=== PATIENT | male | born 1990 | race Caucasian/White ===

== ENCOUNTER → 2018-08-12 | Outpatient (REF) | payer BC | LOC: M LAB REF 19:12 | PROVIDERS: ATTEND Physician Assistant Medical | DX: J02.9 Acute pharyngitis, unspecified (principal) ==

== ENCOUNTER → 2018-12-30 | Outpatient (CLI) | payer BC ==
--- NOTE | 2018-12-31 05:21 | REP ---
Clinical: Lumbago and sciatica . Technique: AP, lateral, flexion/extension, bilateral oblique, and coned-down views. Findings: Alignment and lordosis is maintained. The vertebral bodies including transverse process and spinous processes are intact and normal. There is no evidence for acute fracture / compression injury or subluxation. No evidence for spondylolysis or spondylolisthesis. Minimal endplate sclerosis and disc space narrowing at L5-S1. Impression: Minimal disc space narrowing at L5-L1. Otherwise normal examination. Electronically Signed by Lino Birmingham MD 12/31/2018 05:12 A
== END ==
LOC: M ADAMS 16:03
PROVIDERS: ATTEND Physician Assistant
DX: M54.42 Lumbago with sciatica, left side (principal)

== ENCOUNTER → 2020-02-11 | Outpatient (CLI) | payer BC ==
[2020-02-11 11:39] LABS: BASO % 0.8 % (0.0-1.0); EOS # 0.1 10^3/uL (0.0-0.5); EOS % 1.3 % (0.0-3.0); HEMATOCRIT 44.9 % (42.0-52.0); HEMOGLOBIN 15.3 g/dl (13.5-17.5); LYMPH # 2.2 10^3/uL (1.5-5.0); LYMPH % 40.9 % (24.0-44.0); MEAN CORPUSCULAR HEMOGLOBIN 30.9 pg (27.0-33.0); MEAN CORPUSCULAR HGB CONC 34.1 g/dl (32.0-36.5); MEAN CORPUSCULAR VOLUME 90.7 fl (80.0-96.0); MONO # 0.4 10^3/uL (0.0-0.8); MONO % 6.8 % (0.0-5.0); NEUTROPHILS # 2.6 10^3/uL (1.5-8.5); NEUTROPHILS % 49.8 % (36.0-66.0); PLATELET COUNT, AUTOMATED 282 10^3/uL (150-450); RED BLOOD COUNT 4.95 10^6/uL (4.30-6.10); WHITE BLOOD COUNT 5.3 10^3/uL (4.0-10.0)
[2020-02-11 12:10] LABS: HEMOGLOBIN A1c 5.3 %
[2020-02-11 12:15] LABS: ALBUMIN 4.4 GM/DL (3.2-5.2); ALT/SGPT 53 U/L (12-78); BILIRUBIN,TOTAL 0.7 MG/DL (0.2-1.0); BLOOD UREA NITROGEN 18 MG/DL (7-18); CALCIUM LEVEL 9.3 MG/DL (8.5-10.1); CARBON DIOXIDE LEVEL 26 MEQ/L (21-32); CHLORIDE LEVEL 106 MEQ/L (98-107); CHOLESTEROL LEVEL 299 MG/DL (<200); CHOLESTEROL RISK RATIO 6.229 (<5); CREATININE FOR GFR 0.99 MG/DL (0.70-1.30); FREE T4 1.09 NG/DL (0.76-1.46); GLOMERULAR FILTRATION RATE > 60.0 (>60); GLUCOSE, FASTING 87 MG/DL (70-100); HDL CHOLESTEROL 48 MG/DL (>40); LDL CHOLESTEROL 214 MG/DL (<100); NON-HDL-C 251 MG/DL; POTASSIUM SERUM 4.4 MEQ/L (3.5-5.1); SODIUM LEVEL 139 MEQ/L (136-145); TOTAL PROTEIN 7.5 GM/DL (6.4-8.2); TRIGLYCERIDES LEVEL 187 MG/DL (<150)
== END ==
LOC: M LAB 09:55
PROVIDERS: ATTEND Physician Assistant
DX: Z13.29 Encounter for screening for other suspected endocrine disorder (principal); Z13.220 Encounter for screening for lipoid disorders

== ENCOUNTER → 2020-03-01 | Outpatient (CLI) | payer BC ==
--- NOTE | 2020-03-08 15:42 | SLEEPHOME ---
DATE: 03/01/2020 ORDERED BY: Curtis Espinoza Diagnostic home sleep testing was performed due to concern for the obstructive sleep apnea syndrome in this patient with a history of fatigue. For testing, a nocturnal T3 respiratory monitoring device was used. Continuous record was made of pulse, oxygen saturation, air flow, chest and abdominal strain, and body position. There was 11 hours and 58 minutes of data reviewed. There was 7 hours and 46 minutes marked as time in bed. During the interval marked time in bed, there were 56 respiratory events identified of 10 seconds in duration or greater for a respiratory event index of 7.2. The events were primarily obstructive. Baseline pulse rate 50 beats per minute. Pulse rate ranged 40-80. Baseline saturation was 93%. Saturations fell to 87%, and testing was performed in both the supine and nonsupine positions. IMPRESSION: Abnormal home sleep testing with repetitive respiratory events and oxygen desaturations to 87% with a respiratory event index of 7.2 is consistent with the obstructive sleep apnea syndrome. RECOMMENDATION: The patient should be encouraged to undergo formal sleep evaluation.
== END ==
LOC: M SLEEP HO 10:52
PROVIDERS: ATTEND Physician Assistant
DX: G47.10 Hypersomnia, unspecified (principal)

== ENCOUNTER → 2021-01-30 | Outpatient (REF) | payer BC | LOC: M LAB REF 17:02 | PROVIDERS: ATTEND Physician Assistant | DX: J06.9 Acute upper respiratory infection, unspecified (principal) ==

== ENCOUNTER 2021-02-10 14:06 | Emergency (ER) | payer BC ==
[~2021-02-10] VITALS: Ht 177.8 cm; Wt 79.5 kg
--- OUTSIDE RECORDS SUMMARY | 2021-02-10 14:13 | CCD | Continuity of Care Document ---
Author Author Anish UREÑA Organization [place] [address] Phone [phone] Care Team Providers Care Wind Development Director Name Role Phone Radha Amato D.O. 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 05/03/2020 Cyclobenzaprine HCL 10mg Tablets take one tablet twice a day by mouth. 60tabs M54.42 Mirella LucasO. 05/03/2020 Immunizations Description No Information Available Vital Signs Date Vital Result Comment 01/30/2021 3:28pm Height 69.7 inches 5'9.70" Heart Rate 89 /min Respiratory Rate 20 /min Body Temperature 98.2 F O2 % BldC Oximetry 97 % [place] Body Weight 160 lb 05/03/2020 2:27pm BP Systolic 140 mmHg BP Diastolic 84 mmHg Height 69.7 inches 5'9.70" Weight 209.00 lb BMI (Body Mass Index) 30.2 kg/m2 Heart Rate 87 /min Respiratory Rate 16 /min Body Temperature 97.9 F O2 % BldC Oximetry 96 % [place] Body Weight 160 lb Results Description No Information Available Procedures Date Code Description Status 01/30/2021 06451 Office/Outpatient Established Lo w MDM 20-29 Min Completed Medical Devices Description No Information Available Encounters Type Date Location Provider Dx Diagnosis Office Visit 01/30/2021 3:30p Family Medicine [facility] ELADIA Shin J06.9 Acute upper respiratory infe ction, unspecified Assessments Date Code Description Provider 01/30/2021 J06.9 Acute upper respiratory infectio n, unspecified ELADIA Shin Plan of Treatment No Information Available Functional Status Description No Information Available Mental Status Description No Information Available Referrals Description No Information Available
--- OUTSIDE RECORDS SUMMARY | 2021-02-10 14:13 | CCD ---
Author Author [facility] Organization [facility] Address Unknown Phone Unavailable Care Team Providers Care Adhesive Bandage Making Operator Name Role Phone Jose, A Curtis PA Unavailable Unavailable O'trupti, A Curtis PA Unavailable Unavailable O'trupti, A Curtis PA Unavailable Unavailable O'trupti, A Curtis PA Unavailable Unavailable O'trupti, A Curtis PA Unavailable Unavailable O'trupti, A Ucrtis PA Unavailable Unavailable O'trupti, A Curtis PA Unavailable Unavailable O'trupti, A Curtis PA Unavailable Unavailable O'trupti, A Curtis PA Unavailable Unavailable O'trupti, A Curtis PA Unavailable Unavailable O'trupti, A Curtis PA Unavailable Unavailable O'trupti, A Curtis PA Unavailable Unavailable O'trupti, A Curtis PA Unavailable Unavailable O'trupti, A Curtis PA Unavailable Unavailable O'trupti, A Curtis PA Unavailable Unavailable O'trupti, A Curtis PA Unavailable Unavailable O'trupti, A Curtis PA Unavailable Unavailable O'trupti, A Curtis PA Unavailable Unavailable O'trupti, A Curtis PA Unavailable Unavailable O'trupti, A Curtis PA Unavailable Unavailable O'trupti, A Curtis PA Unavailable Unavailable O'trupti, A Curtis PA Unavailable Unavailable O'trupti, A Curtis PA Unavailable Unavailable O'trupti, A Curtis PA Unavailable Unavailable O'trupti, A Curtis PA Unavailable Unavailable O'trupti, A Curtis PA Unavailable Unavailable O'trupti, A Curtis PA Unavailable Unavailable O'trupti, A Curtis PA Unavailable Unavailable O'trupti, A Curtis PA Unavailable Unavailable O'trupti, A Curtis PA Unavailable Unavailable O'trupti, A Crutis PA Unavailable Unavailable O'trupti, A Curtis PA Unavailable Unavailable O'trupti, A Curtis PA Unavailable Unavailable Re-disclosure Warning The records that you are about to access may contain information from federally-assisted alcohol or drug abuse programs. If such information is present, then the following federally mandated warning applies: This information has been disclosed to you from records protected by federal confidentiality rules (42 CFR part 2). The federal rules prohibit you from making any further disclosure of this information unless further disclosure is expressly permitted by the written consent of the person to whom it pertains or as otherwise permitted by 42 CFR part 2. A general authorization for the release of medical or other information is NOT sufficient for this purpose. The Federal rules restrict any use of the information to criminally investigate or prosecute any alcohol or drug abuse patient.The records that you are about to access may contain highly sensitive health information, the redisclosure of which is protected by Article 27-F of the [facility] Public Health law. If you continue you may have access to information: Regarding HIV / AIDS; Provided by facilities licensed or operated by the [facility] Office of Mental Health; or Provided by the [facility] Office for People With Developmental Disabilities. If such information is present, then the following [facility] mandated warning applies: This information has been disclosed to you from confidential records which are protected by state law. State law prohibits you from making any further disclosure of this information without the specific written consent of the person to whom it pertains, or as otherwise permitted by law. Any unauthorized further disclosure in violation of state law may result in a fine or care home sentence or both. A general authorization for the release of medical or other information is NOT sufficient authorization for further disc losure. Family History Family Member Name Family Member Gender Family Member Status Date o f Status Description Data Source(s) Unknown Unknown Problem [facility] ([facility]) Encounters Encounter Providers Location Date Indications Data Source(s ) Outpatient Attender: Curtis MONTILLA [facility] 01/30/2021 02:30:00 PM EST [facility] ([facility]) Outpatient Attender: Curtis MONTILLA [facility] 05/03/2020 01:30:00 PM EST [facility] ([facility]) Outpatient Attender: Curtis MONTILLA [facility] 02/12/2020 08:00:00 AM EST [facility] ([facility]) Medications Medication Brand Name Start Date Product Form Dose Route Admi nistrative Instructions Pharmacy Instructions Status Indications Reaction Description Data Source(s) Prednisone 20 MG Oral Tablet Prednisone 05/03/2020 12:00:00 AM EST ORAL active [facility] ([facility]) 500 mg 05/03/2020 12:00:00 AM EST tablet 180 TAKE ONE TABLET BY MOUTH TWICE A DAY WITH FOOD NEEDED TAKE ONE TABLET BY MOUTH TWICE A DAY WIT H FOOD NEEDED SOLD: 05/04/2020 [facility] Cyclobenzaprine hydrochloride 10 MG Oral Tablet Cyclobenzapr ine HCL 05/03/2020 12:00:00 AM EST ORAL active [facility] ([facility]) Naproxen 500 MG Oral Tablet Naproxen 05/03/2020 12:00:00 AM EST active [facility] ([facility]) Cyclobenzaprine hydrochloride 10 MG Oral Tablet CYCLOBENZAPR INE HCL 05/03/2020 12:00:00 AM EST tablet 60 TAKE ONE TABLET BY MOUTH TWICE A DAY TAKE ONE TABLET BY MOUTH TWICE A DAY SOLD: 05/04/2020 [facility] 20 mg 05/03/2020 12:00:00 AM EST tablet 10 TAKE TWO TABLETS BY MOUTH EVERY DAY FOR 5 DAYS TAKE TWO TABLETS BY MOUTH EVERY DAY FOR 5 DAYS SOLD: 021 [facility]. 02/12/2020 12:00:00 AM EST completed [facility] ([facility]) Rosuvastatin calcium 20 MG Oral Tablet Rosuvastatin Calcium 02/12/2020 12:00:00 AM EST ORAL completed [facility] ([facility]) No Active Medications 02/12/2020 12:00:00 AM EST completed [facility] ([facility]) Insurance Providers Payer name Policy type / Coverage type Policy ID Covered alliance party ID Covered alliance party's relationship to becerril Policy Becerril Plan Information [employer] [place] 302/307 [id number] [id number] [employer] [place] 306/806 [id number] [place] [id number] [employer] [place] 306/806 [id number] [place] [id number] [facility] BCBS B [id number] P [id number] [employer] [id number] Family Dependent [id number] [facility] P [id number] S [id number] [facility] P [id number] S [id number] Problems, Conditions, and Diagnoses No Information Surgeries/Procedures Procedure Description Date Indications Data Source(s) OFFICE OUTPATIENT VISIT 15 MINUTES 01/30/2021 12:00:00 AM EST [facility] ([facility]) Results ID Date Data Source [id number] 01/30/2021 04:00:00 PM EST [facility] Name Value Range Interpretation Code Description Data Tanesha rce(s) Supporting Document(s) Respiratory pathogens identified [Type] in Nasopharynx by Probe and target amplification method SARS-CoV-2 (COVID 19) [facility] This lab was ordered by [facility] a nd reported by [facility]. ID Date Data Source [id number] 01/30/2021 04:00:00 PM EST [facility] ([facility]) Name Value Range Interpretation Code Description Data Tanesha rce(s) Supporting Document(s) Respiratory Panel Laboratory test result [facility] ([facility]) This respiratory PCR panel detects Influ mehrdad A H1, H3 and 2009 H1 viruses, Influenza B virus, Resp iratory Syncytial Virus, Human metapneumovirus, Parainfluenza virus 1, 2, 3 and 4, Adenovirus, Rhinovirus/Enterovirus, Coronavirus HKU1, NL63, OC43, 229E and SARS-CoV-2 (COVID 19), Bordetella pertussis, Bordetella parapertussis, Mycoplasma pneumoniae and Chlamydia pneumoniae. POSITIVE by MULTIPLEXED NUCLEIC ACID PCR SARS-CoV-2 (COVID 19) POSITIVE - SARS-CoV-2 (COVID19) ORGANISM 1: SARS-CoV-2 (COVID 19) ID Date Data Source [id number] 02/11/2020 10:05:00 AM EST [facility] ([facility]) Name Value Range Interpretation Code Description Data Tanesha rce(s) Supporting Document(s) Triglycerides Level 187 mg/dL Above high normal [facility] HDL Cholesterol 48 mg/dL Normal (applies to non-numeric results) [facility] ([facility]) Cholesterol Level 299 mg/dL Above high normal [facility] ([facility]) LDL Cholesterol 214 mg/dL Above high normal [facility] ([facility]) Cholesterol Risk Ratio 6.229 Above high normal [facility] ([facility]) Non-HDL-C 251 mg/dL Normal (applies to non-numeric resul ts) [facility] ([facility]) ID Date Data Source [id number] 02/11/2020 10:05:00 AM EST [facility] ([facility]) Name Value Range Interpretation Code Description Data Tanesha rce(s) Supporting Document(s) Thyroid Stimulating Hormone 1.430 uIU/ML 0.358-3.740 Norm al (applies to non- numeric results) [facility] ([facility]) Free T4 1.09 ng/dL 0.76-1.46 Normal (applies to non-numeric resul ts) [facility] ([facility]) ID Date Data Source [id number] 02/11/2020 10:05:00 AM EST [facility] ([facility]) Name Value Range Interpretation Code Description Data Tanesha rce(s) Supporting Document(s) Hemoglobin A1c 5.3 % Normal (applies to non-numeric r esults) [facility] ([facility]) <content>REFERENCE RANGES:</content><br/ ><content></content>
<content><=5.6% NORMAL</content>
<content>5.7-6.4% SUGGESTS IMPAIRED GLUCOSE METABOLISM/PREDIABETIC</content>
<content>>= 6.5% ABNORMAL</content>
<content></content> Estimated Average Glucose 105 mg/dL 60-110 Normal (applies to non-numeric results) [facility] ([facility]) ID Date Data Source [id number] 02/11/2020 10:05:00 AM EST [facility] ([facility]) Name Value Range Interpretation Code Description Data Tanesha rce(s) Supporting Document(s) Calcitriol [Mass/volume] in Serum or Plasma 48.4 pg/mL 19.9 -79.3 Normal (applies to non-numeric results) [facility] ([facility]) Performed at: [address] [id number] Restaurant Worker: Annalise Gaitan MD, Phone: [phone] ID Date Data Source [id number] 02/11/2020 10:05:00 AM EST [facility] ([facility]) Name Value Range Interpretation Code Description Data Tanesha rce(s) Supporting Document(s) White Blood Count 5.3 10 4.0-10.0 Normal (applies to non-numeri c results) [facility] ([facility]) Hemoglobin 15.3 g/dL 13.5-17.5 Normal (applies to non-numeric resul ts) [facility] ([facility]) Hematocrit 44.9 % 42.0-52.0 Normal (applies to non-numeric resul ts) [facility] ([facility]) Red Blood Count 4.95 10 4.30-6.10 Normal (applies to non-numeric results) [facility] ([facility]) Mean Corpuscular Hemoglobin 30.9 pg 27.0-33.0 Norm al (applies to non-numeric results) [facility] ([facility]) Mean Corpuscular Volume 90.7 fl 80.0-96.0 Normal ( applies to non-numeric results) [facility] ([facility]) Red Cell Distribution Width 12.5 % 11.5-14.5 Norm al (applies to non-numeric results) [facility] ([facility]) Platelet Count, Automated 282 10 150-450 Normal (applies to non-numeric results) [facility] ([facility]) Mean Corpuscular HGB Conc 34.1 g/dL 32.0-36.5 Normal (applies to non-numeric results) [facility] ([facility]) [place] % 6.8 % 0.0-5.0 Above high normal [facility] ([facility]) Neutrophils % 49.8 % 36.0-66.0 Normal (applies to non-numeric re sults) [facility] ([facility]) Lymph % 40.9 % 24.0-44.0 Normal (applies to non-numeric resul ts) [facility] ([facility]) Immature Granulocyte % 0.4 % 0-3.0 Normal (applies to non-n umeric results) [facility] ([facility]) Baso % 0.8 % 0.0-1.0 Normal (applies to non-numeric resul ts) [facility] ([facility]) Eos % 1.3 % 0.0-3.0 Normal (applies to non-numeric resul ts) [facility] ([facility]) Neutrophils # 2.6 10 1.5-8.5 Normal (applies to non-numeric re sults) [facility] ([facility]) Nucleated Red Blood Cell % 0.0 % 0-0 Normal (applies to n on-numeric results) [facility] ([facility]) [place] # 0.4 10 0.0-0.8 Normal (applies to non-numeric resul ts) [facility] ([facility]) Lymph # 2.2 10 1.5-5.0 Normal (applies to non-numeric resul ts) [facility] ([facility]) Eos # 0.1 10 0.0-0.5 Normal (applies to non-numeric resul ts) [facility] ([facility]) Baso # 0.0 10 0.0-0.2 Normal (applies to non-numeric resul ts) [facility] ([facility]) ID Date Data Source [id number] 02/11/2020 10:05:00 AM EST [facility] ([facility]) Name Value Range Interpretation Code Description Data Tanesha rce(s) Supporting Document(s) Blood Urea Nitrogen 18 mg/dL 7-18 Normal (applies to non-nume dhaval results) [facility] ([facility]) Creatinine For GFR 0.99 mg/dL 0.70-1.30 Normal (applies to non -numeric results) [facility] ([facility]) Glucose, Fasting 87 mg/dL 70-100 Normal (applies to non-numeric results) [facility] ([facility]) Sodium Level 139 meq/L 136-145 Normal (applies to non-numeric res ults) [facility] ([facility]) Glomerular Filtration Rate Laboratory test result Normal (applies to non- numeric results) [facility] ([facility]) <content>Units are mL/min/1.73 m2</content>
<content></content>
<content>Chronic Kidney Disease Staging per NKF:</content>
<content></content>
<content>Stage I & II GFR >=60 Normal to Mildly Decreased</content>
<content>Stage III GFR 30- 59 Moderately Decreased</content>
<content>Stage IV GFR 15-29 Severely Decreased</content>
<content>Stage V GFR <15 Very Little GFR Left</content>
<content>ESRD GFR <15 on RESIDENTIAL APPLIANCE REPAIR TECHNICIAN</content>
<content></content> Potassium Serum 4.4 meq/L 3.5-5.1 Normal (applies to non-numeric results) [facility] ([facility]) Chloride Level 106 meq/L 98-107 Normal (applies to non-numeric r esults) [facility] ([facility]) Carbon Dioxide Level 26 meq/L 21-32 Normal (applies to non-num amrit results) [facility] ([facility]) Ast/Sgot 23 U/L 7-37 Normal (applies to non-numeric resul ts) [facility] ([facility]) Anion Gap 7 meq/L 8-16 Below low normal [facility] ( [facility]) Calcium Level 9.3 mg/dL 8.5-10.1 Normal (applies to non-numeric re sults) [facility] ([facility]) Alt/SGPT 53 U/L 12-78 Normal (applies to non-numeric resul ts) [facility] ([facility]) Alkaline Phosphatase 72 U/L 45-117 Normal (applies to non-num amrit results) [facility] ([facility]) Albumin 4.4 GM/DL 3.2-5.2 Normal (applies to non-numeric resul ts) [facility] ([facility]) Total Protein 7.5 GM/DL 6.4-8.2 Normal (applies to non-numeric re sults) [facility] ([facility]) Bilirubin,Total 0.7 mg/dL 0.2-1.0 Normal (applies to non-numeric results) [facility] ([facility]) Albumin/Globulin Ratio 1.4 Normal (applies to non-n umeric results) [facility] ([facility]) Procedure Social History No Information Vital Signs ID Date Data Source UNK Name Value Range Interpretation Code Description Data Source(s) Body height 69.7 [in_i] 69.7 [in_i] [facility] ([facility] 5'9.70" Heart rate 89 /min 89 /min [facility] ([facility]) Respiratory rate 20 /min 20 /min [facility] ( [facility]) Body temperature 98.2 [degF] 98.2 [degF] [facility] ([facility]) Oxygen saturation in Arterial blood by Pulse oximetry 97 % 97 % [facility] ([facility]) [place] body weight 160 [lb_av] 160 [lb_av] [facility] T ([facility]) Systolic blood pressure 140 mm[Hg] 140 mm[Hg] [facility] ([facility]) Diastolic blood pressure 84 mm[Hg] 84 mm[Hg] [facility] ([facility]) Body height 69.7 [in_i] 69.7 [in_i] [facility] ([facility]) 5'9.70" Body weight 209.00 [lb_av] 209.00 [lb_av] [facility] T ([facility]) Body mass index (BMI) [Ratio] 30.2 kg/m2 30.2 k g/m2 [facility] ([facility]) Heart rate 87 /min 87 /min [facility]) Respiratory rate 16 /min 16 /min [facility] ( [facility]) Body temperature 97.9 [degF] 97.9 [degF] [facility] ([facility]) Oxygen saturation in Arterial blood by Pulse oximetry 96 % 96 % [facility] ([facility]) [place] body weight 160 [lb_av] 160 [lb_av] [facility] T ([facility]) Systolic blood pressure 128 mm[Hg] 128 mm[Hg] M DHAVAL ([facility]) Diastolic blood pressure 74 mm[Hg] 74 mm[Hg] [facility] ([facility]) Body height 69.7 [in_i] 69.7 [in_i] [facility] ([facility]) 5'9.70" Body weight 210.12 [lb_av] 210.12 [lb_av] [facility]A T ([facility]) Oxygen saturation in Arterial blood by Pulse oximetry 97 % 97 % [facility] ([facility]) [place] body weight 160 [lb_av] 160 [lb_av] [facility] T ([facility]) Body mass index (BMI) [Ratio] 30.4 kg/m2 30.4 k g/m2 [facility] ([facility]) Heart rate 69 /min 69 /min [facility] ([facility]) Respiratory rate 18 /min 18 /min [facility] ( [facility]) Body temperature 98.4 [degF] 98.4 [degF] [facility] ([facility])
--- OUTSIDE RECORDS SUMMARY | 2021-02-10 14:13 | CCD | Continuity of Care Document ---
Author Author Anish UREÑA Organization [place] [address] Phone [phone] Care Team Providers Care Clerical Support Name Role Phone Radha Amato D.O. AUTM [...] F O2 % BldC Oximetry 97 % [place] Body Weight 160 lb 05/03/2020 2:27pm BP Systolic 140 mmHg BP Diastolic 84 mmHg Height 69.7 inches 5'9.70" Weight 209.00 lb BMI (Body Mass Index) 30.2 kg/m2 Heart Rate 87 /min Respiratory Rate 16 /min Body Temperature 97.9 F O2 % BldC Oximetry 96 % [place] Body Weight 160 lb Results Description No Information Available Procedures Date Code Description Status 01/30/2021 12058 Office/Outpatient Established Lo w MDM 20-29 Min Completed Medical Devices Description No Information Available Encounters Type Date Location Provider Dx Diagnosis Office Visit 01/30/2021 3:30p Family Medicine [facility] ELADIA Shin J06.9 Acute upper respiratory infe ction, unspecified Assessments Date Code Description Provider 01/30/2021 J06.9 Acute upper respiratory infectio n, unspecified ELADIA Shin Plan of Treatment No Information Available Functional Status Description No Information Available Mental Status Description No Information Available Referrals Description No Information Available
--- OUTSIDE RECORDS SUMMARY | 2021-02-10 14:13 | CCD | Continuity of Care Document ---
Author Author Anish UREÑA Organization [place] [address] Phone [phone] Care Team Providers Care Clinical Psychologist Name Role Phone Radha Amato D.O. AUTM [...] F O2 % BldC Oximetry 97 % [place] Body Weight 160 lb 05/03/2020 2:27pm BP Systolic 140 mmHg BP Diastolic 84 mmHg Height 69.7 inches 5'9.70" Weight 209.00 lb BMI (Body Mass Index) 30.2 kg/m2 Heart Rate 87 /min Respiratory Rate 16 /min Body Temperature 97.9 F O2 % BldC Oximetry 96 % [place] Body Weight 160 lb Results Test Acquired Date Facility Test Result H/L Range Note Respiratory Panel 01/30/2021 [facility] [address] [place] [address] [phone] Respiratory Panel This respiratory <SEE NOTE> 1 1 This respiratory PCR panel d etects Influenza A H1, H3 and 2009 H1 viruses, Influenza B virus, Resp iratory Syncytial Virus, Human metapneumovirus, Parainfluenza virus 1, 2, 3 and 4, Adenovirus, Rhinovirus/Enterovirus, Coronavirus HKU1, NL63, OC43, 229E and SARS-CoV-2 (COVID 19), Bordetella pertussis, Bordetella parapertussis, Mycoplasma pneumoniae and Chlamydia pneumoniae. POSITIVE by MULTIPLEXED NUCLEIC ACID PCR SARS-CoV-2 (COVID 19) POSITIVE - SARS-CoV-2 (COVID19) ORGANISM 1: SARS-CoV-2 (COVID 19) Procedures Date Code Description Status 01/30/2021 95433 Office/Outpatient Established w MDM 20-29 Min Completed Medical Devices Description No Information Available Encounters Type Date Location Provider Dx Diagnosis Office Visit 01/30/2021 3:30p Family Medicine [facility] ELADIA Shin J06.9 Acute upper respiratory infe ction, unspecified Assessments Date Code Description Provider 01/30/2021 J06.9 Acute upper respiratory infectio n, unspecified ELADIA Shin Plan of Treatment No Information Available Functional Status Description No Information Available Mental Status Description No Information Available Referrals Description No Information Available
--- OUTSIDE RECORDS SUMMARY | 2021-02-10 14:13 | CCD | Continuity of Care Document ---
Author Author Anish UREÑA Organization [place] [address] Phone [phone] Care Team Providers Care Numerical Control Operator Name Role Phone Radha Amato D.O. AUTM [...] F O2 % BldC Oximetry 97 % [place] Body Weight 160 lb 05/03/2020 2:27pm BP Systolic 140 mmHg BP Diastolic 84 mmHg Height 69.7 inches 5'9.70" Weight 209.00 lb BMI (Body Mass Index) 30.2 kg/m2 Heart Rate 87 /min Respiratory Rate 16 /min Body Temperature 97.9 F O2 % BldC Oximetry 96 % [place] Body Weight 160 lb Results Description No Information Available Procedures Date Code Description Status 01/30/2021 64117 Office/Outpatient Established Lo w MDM 20-29 Min Completed Medical Devices Description No Information Available Encounters Type Date Location Provider Dx Diagnosis Office Visit 01/30/2021 3:30p Family Medicine [facility] ELADIA Shin J06.9 Acute upper respiratory infe ction, unspecified Assessments Date Code Description Provider 01/30/2021 J06.9 Acute upper respiratory infectio n, unspecified ELADIA Shin Plan of Treatment No Information Available Functional Status Description No Information Available Mental Status Description No Information Available Referrals Description No Information Available
[2021-02-10] MEDS ORDERED: ISOVUE-370 76% 100ML VIAL As Ordered ONE (19:50)
[2021-02-10] MEDS ORDERED: NS 1,000 ML IV ONE (19:50)
--- OUTSIDE RECORDS SUMMARY | 2021-02-10 20:39 | CCD ---
Author Author [facility] Organization [facility] Address Unknown Phone Unavailable Care Team Providers Care Content Strategist Name Role Phone Jose, A Curtis PA [...] is protected by Article 27-F of the [facility] Public Health law. If you continue you may have access to information: Regarding HIV / AIDS; Provided by facilities licensed or operated by the [facility] Office of Mental Health; or Provided by the [facility] Office for People With Developmental Disabilities. If such information is present, then the following [facility] mandated warning applies: This information has been [...] law may result in a fine or snf sentence or both. A general authorization for the release of medical or other information is NOT sufficient authorization for further disc losure. Family History Family Member Name Family Member Gender Family Member Status Date o f Status Description Data Source(s) Unknown Unknown Problem [facility] ([facility]) Encounters Encounter Providers Location Date Indications Data Source(s ) Outpatient Attender: Curtis MONTILLA [facility] 02/10/2021 09:40:00 AM EST [facility] ([facility]) Outpatient Attender: Curtis MONTILLA [facility] 01/30/2021 02:30:00 PM EST [facility] ([facility]) Outpatient Attender: Curtis MONTILLA [facility] 05/03/2020 01:30:00 PM EST [facility] ([facility]) Outpatient Attender: Curtis MONTILLA [facility] 02/12/2020 08:00:00 AM EST [facility] ([facility]) Medications Medication Brand Name Start Date Product Form Dose Route Admi nistrative Instructions Pharmacy Instructions Status Indications Reaction Description Data Source(s) Prednisone 20 MG Oral Tablet Prednisone 05/03/2020 12:00:00 AM EST ORAL active [facility] ([facility]) 500 mg 05/03/2020 12:00:00 AM EST tablet 180 TAKE ONE TABLET BY MOUTH TWICE A DAY WITH FOOD NEEDED TAKE ONE TABLET BY MOUTH TWICE A DAY WIT H FOOD NEEDED SOLD: 05/04/2020 [facility] Cyclobenzaprine hydrochloride 10 MG Oral Tablet Cyclobenzapr ine HCL 05/03/2020 12:00:00 AM EST ORAL active M [facility] ([facility]) Naproxen 500 MG Oral Tablet Naproxen 05/03/2020 12:00:00 AM EST active [facility] ([facility]) Cyclobenzaprine hydrochloride 10 MG Oral Tablet CYCLOBENZAPR [...] EVERY DAY FOR 5 DAYS SOLD: [address] [facility] Home Sleep Study. 02/12/2020 12:00:00 AM EST completed [facility] ([facility]) Rosuvastatin calcium 20 MG Oral Tablet Rosuvastatin Calcium 02/12/2020 12:00:00 AM EST ORAL completed [facility] ([facility]) No Active Medications 02/12/2020 12:00:00 AM EST completed [facility] ([facility]) Insurance Providers Payer name Policy type / Coverage type Policy ID Covered alliance party ID Covered alliance party's relationship to becerril Policy Becerril Plan Information [employer] [place] PPO 302/307 [id number] [place] [id number] [employer] [place] 306/806 [id number] [place] [id number] BC[place] OF [place] 306/806 [id number] [place]2 [id number] [employer] BCBS B [id number] P VYS [id number] BCBS/[employer] Commercial [id number] Family Dependent [id number] [facility] P [id number] S [id number] [facility] P [id number] S [id number] Problems, Conditions, and Diagnoses No Information Surgeries/Procedures Procedure Description Date Indications Data Source(s) Electrocardiogram Complete 02/10/2021 12:00:00 AM EST [facility] ([facility]) OFFICE OUTPATIENT VISIT 25 MINUTES 02/10/2021 12:00:00 AM EST [facility] ([facility]) OFFICE OUTPATIENT VISIT 15 MINUTES 01/30/2021 12:00:00 AM EST [facility] ([facility]) Results ID Date Data Source [id number] 02/10/2021 12:07:00 PM EST [facility] ([facility]) Name Value Range Interpretation Code Description Data Tanesha rce(s) Supporting Document(s) EKG Laboratory test result [facility] ([facility]) ID Date Data Source [id number] 02/10/2021 11:53:00 AM EST [facility] ([facility]) Name Value Range Interpretation Code Description Data Tanesha rce(s) Supporting Document(s) C reactive protein [Mass/volume] in Serum or Plasma by High sensitivity method 0.68 mg/dL 0.00-0.30 Above high normal [facility] ([facility]) ID Date Data Source [id number] 02/10/2021 11:53:00 AM EST [facility] ([facility]) Name Value Range Interpretation Code Description Data Tanesha rce(s) Supporting Document(s) Glucose, Fasting 88 mg/dL 70-100 Normal (applies to non-numeric results) [facility] ([facility]) Blood Urea Nitrogen 10 mg/dL 7-18 Normal (applies to non-nume dhaval results) [facility] ([facility]) Creatinine For GFR 0.84 mg/dL 0.70-1.30 Normal (applies to non -numeric results) [facility] ([facility]) Glomerular Filtration Rate Laboratory test result Normal (applies to non- numeric results) [facility] ([facility]) <content>Units are mL/min/1.73 m2</content>
<content></content>
<content>Chronic Kidney Disease Staging per NKF:</content>
<content></content>
<content>Stage I & II GFR >=60 Normal to Mildly Decreased</content>
<content>Stage III GFR 30- 59 Moderately Decreased</content>
<content>Stage IV GFR 15-29 Severely Decreased</content>
<content>Stage V GFR <15 Very Little GFR Left</content>
<content>ESRD GFR <15 on DIRECTOR OF STUDENT SERVICES</content>
<content></content> Sodium Level 142 meq/L 136-145 Normal (applies to non-numeric res ults) [facility] ([facility]) Potassium Serum 4.2 meq/L 3.5-5.1 Normal (applies to non-numeric results) [facility] ([facility]) Chloride Level 109 meq/L 98-107 Above high normal [facility] ([facility]) Carbon Dioxide Level 29 meq/L 21-32 Normal (applies to non-num amrit results) [facility] ([facility]) Anion Gap 4 meq/L 8-[address] [facility] ( [facility]) Calcium Level 9.1 mg/dL 8.5-10.1 Normal (applies to non-numeric re sults) [facility] ([facility]) Alt/SGPT 63 U/L 12-78 Normal (applies to non-numeric resul ts) [facility] ([facility]) Ast/Sgot 21 U/L 7-37 Normal (applies to non-numeric resul ts) [facility] ([facility]) Bilirubin,Total 0.4 mg/dL 0.2-1.0 Normal (applies to non-numeric results) [facility] ([facility]) Alkaline Phosphatase 71 U/L 45-117 Normal (applies to non-num amrit results) [facility] ([facility]) Total Protein 7.0 GM/DL 6.4-8.2 Normal (applies to non-numeric re sults) [facility] ([facility]) Albumin 4.1 GM/DL 3.2-5.2 Normal (applies to non-numeric resul ts) [facility] ([facility]) Albumin/Globulin Ratio 1.4 Normal (applies to non-n umeric results) [facility] ([facility]) ID Date Data Source [id number] 02/10/2021 11:53:[address] [facility] ([facility]) Name Value Range Interpretation Code Description Data Tanesha rce(s) Supporting Document(s) Fibrin D-dimer FEU [Mass/volume] in Platelet poor plasma 584.54 ng/mL Above high normal [facility] ([facility]) Laboratory test finding (navigational concept) 8.0 ng/L 3 .0-78 Normal (applies to non-numeric results) [facility]) ID Date Data Source [id number] 02/10/2021 11:53:[address] [facility] ([facility]) Name Value Range Interpretation Code Description Data Tanesha rce(s) Supporting Document(s) Inr 0.97 Normal (applies to non-numeric resul ts) [facility] ([facility]) THERAPUTIC HUMAN INR VALUES INDICATIONS NORMAL RANGES PROPHYLAXIS/TREATMENT OF: VENOUS THROMBOSIS 2.0-3.0 PULMONARY EMBOLISM 2.0-3.0 PREVENTION OF SYSTEMIC EMBOLISM FROM: TISSUE HEART VALVES 2.0-3.0 ACUTE MYOCARDIAL INFARCTION 2.0-3.0 VALVULAR HEART DISEASE 2.0-3.0 ATRIAL FIBRILLATION 2.0-3.0 MECHANICAL VALVES(HIGH RISK) 2.5-3.5 RECURRENT MYOCARDIAL INFARCTION 2.5-3.5 Prothrombin Time 13.3 s 12.7-14.5 Normal (applies to non-numeric results) [facility] ([facility]) Partial Thromboplastin Time 30.9 s 25.9-37.0 Norm al (applies to non-numeric results) [facility]) ID Date Data Source [id number] 02/10/2021 11:53:00 AM EST [facility] ([facility]) Name Value Range Interpretation Code Description Data Tanesha rce(s) Supporting Document(s) White Blood Count 4.4 10 4.0-10.0 Normal (applies to non-numeri c results) [facility] ([facility]) Hemoglobin 15.3 g/dL 13.5-17.5 Normal (applies to non-numeric resul ts) [facility] ([facility]) Red Blood Count 4.97 10 4.30-6.10 Normal (applies to non-numeric results) [facility] ([facility]) Hematocrit 44.9 % 42.0-52.0 Normal (applies to non-numeric resul ts) [facility] ([facility]) Mean Corpuscular Hemoglobin 30.8 pg 27.0-33.0 Norm al (applies to non-numeric results) [facility] ([facility]) Mean Corpuscular Volume 90.3 fl 80.0-96.0 Normal ( applies to non-numeric results) [facility] ([facility]) Red Cell Distribution Width 12.6 % 11.5-14.5 Norm al (applies to non-numeric results) [facility] ([facility]) Mean Corpuscular HGB Conc 34.1 g/dL 32.0-36.5 Normal (applies to non-numeric results) [facility] ([facility]) Platelet Count, Automated 263 10 150-450 Normal (applies to non-numeric results) [facility] ([facility]) Neutrophils % 44.2 % 36.0-66.0 Normal (applies to non-numeric re sults) [facility] ([facility]) Lymph % 43.9 % 24.0-44.0 Normal (applies to non-numeric resul ts) [facility] ([facility]) Eos % 1.8 % 0.0-3.0 Normal (applies to non-numeric resul ts) [facility] ([facility]) [place] % 9.0 % 2.0-8.0 Above high normal [facility] ([facility]) Immature Granulocyte % 0.2 % 0-3.0 Normal (applies to non-n umeric results) [facility] ([facility]) Baso % 0.9 % 0.0-1.0 Normal (applies to non-numeric resul ts) [facility] ([facility]) Neutrophils # 2.0 10 1.5-8.5 Normal (applies to non-numeric re sults) [facility] ([facility]) Nucleated Red Blood Cell % 0.0 % 0-0 Normal (applies to n on-numeric results) [facility] ([facility]) [place] # 0.4 10 0.0-0.8 Normal (applies to non-numeric resul ts) [facility] ([facility]) Lymph # 2.0 10 1.5-5.0 Normal (applies to non-numeric resul ts) [facility] ([facility]) Eos # 0.1 10 0.0-0.5 Normal (applies to non-numeric resul ts) [facility] ([facility]) Baso # 0.0 10 0.0-0.2 Normal (applies to non-numeric resul ts) [facility] ([facility]) ID Date Data Source [id number] 01/30/2021 04:00:00 PM EST [facility] ([facility]) Name Value Range Interpretation Code Description Data Tanesha rce(s) Supporting Document(s) Respiratory Panel [facility] This respiratory PCR panel detects Influ mehrdad [...] SARS-CoV-2 (COVID 19) ID Date Data Source [id number] 01/30/2021 04:00:00 PM EST [facility] Name Value Range Interpretation Code Description Data Tanesha rce(s) Supporting Document(s) Respiratory pathogens identified [Type] in Nasopharynx by Probe and target amplification method SARS-CoV-2 (COVID 19) [facility] This lab was ordered by [facility] a nd reported by [facility]. ID Date Data Source [id number] 02/11/2020 10:05:00 AM EST [facility] ([facility]) Name Value Range Interpretation Code Description Data Tanesha rce(s) Supporting Document(s) Triglycerides Level 187 mg/dL Above high normal [facility] HDL Cholesterol 48 mg/dL Normal (applies to non-numeric results) [facility] ([facility]) Cholesterol Level 299 mg/dL Above high normal [facility] ([facility]) LDL Cholesterol 214 mg/dL Above high normal [facility] ([facility]) Cholesterol Risk Ratio 6.229 Above high normal [facility] ([facility]) Non-HDL-C 251 mg/dL Normal (applies to non-numeric resul ts) [facility]) ID Date Data Source [id number] 02/11/2020 10:05:00 AM EST [facility] ([facility]) Name Value Range Interpretation Code Description Data Tanesha rce(s) Supporting Document(s) Thyroid Stimulating Hormone 1.430 uIU/ML 0.358-3.740 Norm al (applies to non- numeric results) [facility] ([facility]) Free T4 1.09 ng/dL 0.76-1.46 Normal (applies to non-numeric resul ts) [facility]) ID Date Data Source [id number] 02/11/2020 10:05:00 AM EST [facility] ([facility]) Name Value Range Interpretation Code Description Data Tanesha rce(s) Supporting Document(s) Hemoglobin A1c 5.3 % Normal (applies to non-numeric r esults) [facility]) <content>REFERENCE RANGES:</content><br/ ><content></content>
<content><=5.6% NORMAL</content>
<content>5.7-6.4% SUGGESTS IMPAIRED GLUCOSE METABOLISM/PREDIABETIC</content>
<content>>= 6.5% ABNORMAL</content>
<content></content> Estimated Average Glucose 105 mg/dL 60-110 Normal (applies to non-numeric results) [facility] ([facility]) ID Date Data Source [id number] 02/11/2020 10:05:00 AM EST [facility] ([facility]) Name Value Range Interpretation Code Description Data Tanesha rce(s) Supporting Document(s) Calcitriol [Mass/volume] in Serum or Plasma 48.4 pg/mL 19.9 -79.3 Normal (applies to non-numeric results) [facility] ([facility]) Performed at: - [address] [id number] Ammonia Solution Preparer: Annalise Gaitan MD, Phone: [phone] ID Date Data Source [id number] 02/11/2020 10:05:00 AM EST [facility] ([facility]) Name Value Range Interpretation Code Description Data Tanesha rce(s) Supporting Document(s) White Blood Count 5.3 10 4.0-10.0 Normal (applies to non-numeri c results) [facility] ([facility]) Hemoglobin 15.3 g/dL 13.5-17.5 Normal (applies to non-numeric resul ts) [facility] ([facility]) Hematocrit 44.9 % 42.0-52.0 Normal (applies to non-numeric resul ts) [facility] ([facility]) Red Blood Count 4.95 10 4.30-6.10 Normal (applies to non-numeric results) [facility] Mean Corpuscular Hemoglobin 30.9 pg 27.0-33.0 Norm al (applies to non-numeric results) [facility] Mean Corpuscular Volume 90.7 fl 80.0-96.0 Normal ( applies to non-numeric results) [facility] Red Cell Distribution Width 12.5 % 11.5-14.5 Norm al (applies to non-numeric results) [facility]) Platelet Count, Automated 282 10 150-450 Normal (applies to non-numeric results) [facility]) Mean Corpuscular HGB Conc 34.1 g/dL 32.0-36.5 Normal (applies to non-numeric results) [facility] ([facility]) [place] % 6.8 % 0.0-5.0 Above high normal [facility] ([facility]) Neutrophils % 49.8 % 36.0-66.0 Normal (applies to non-numeric re sults) [facility] ([facility]) Lymph % 40.9 % 24.0-44.0 Normal (applies to non-numeric resul ts) [facility] ([facility]) Immature Granulocyte % 0.4 % 0-3.0 Normal (applies to non-n umeric results) [facility] ([facility]) Baso % 0.8 % 0.0-1.0 Normal (applies to non-numeric resul ts) [facility] ([facility]) Eos % 1.3 % 0.0-3.0 Normal (applies to non-numeric resul ts) [facility] ([facility]) Neutrophils # 2.6 10 1.5-8.5 Normal (applies to non-numeric re sults) [facility] ([facility]) Nucleated Red Blood Cell % 0.0 % 0-0 Normal (applies to n on-numeric results) [facility] ([facility]) [place] # 0.4 10 0.0-0.8 Normal (applies to non-numeric resul ts) [facility] ([facility]) Lymph # 2.2 10 1.5-5.0 Normal (applies to non-numeric resul ts) [facility] ([facility]) Eos # 0.1 10 0.0-0.5 Normal (applies to non-numeric resul ts) [facility] ([facility]) Baso # 0.0 10 0.0-0.2 Normal (applies to non-numeric resul ts) [facility] ([facility]) ID Date Data Source [id number] 02/11/2020 10:05:00 AM EST [facility] Name Value Range Interpretation Code Description Data Tanesha rce(s) Supporting Document(s) Blood Urea Nitrogen 18 mg/dL 7-18 Normal (applies to non-nume dhaval results) [facility] ([facility]) Creatinine For GFR 0.99 mg/dL 0.70-1.30 Normal (applies to non -numeric results) [facility]) Glucose, Fasting 87 mg/dL 70-100 Normal (applies to non-numeric results) [facility] ([facility]) Sodium Level 139 meq/L 136-145 Normal (applies to non-numeric res ults) [facility]) Glomerular Filtration Rate Laboratory test result Normal (applies to non- numeric results) [facility] ([facility]) <content>Units are mL/min/1.73 m2</content>
<content></content>
<content>Chronic Kidney Disease Staging per NKF:</content>
<content></content>
<content>Stage I & II GFR >=60 Normal to Mildly Decreased</content>
<content>Stage III GFR 30- 59 Moderately Decreased</content>
<content>Stage IV GFR 15-29 Severely Decreased</content>
<content>Stage V GFR <15 Very Little GFR Left</content>
<content>ESRD GFR <15 on DIRECTOR OF STUDENT SERVICES</content>
<content></content> Potassium Serum 4.4 meq/L 3.5-5.1 Normal (applies to non-numeric results) [facility] ([facility]) Chloride Level 106 meq/L 98-107 Normal (applies to non-numeric r esults) [facility]) Carbon Dioxide Level 26 meq/L 21-32 Normal (applies to non-num amrit results) [facility] ([facility]) Ast/Sgot 23 U/L 7-37 Normal (applies to non-numeric resul ts) [facility]) Anion Gap 7 meq/L 8-[address] [facility] ( [facility]) Calcium Level 9.3 mg/dL 8.5-10.1 Normal (applies to non-numeric re sults) [facility]) Alt/SGPT 53 U/L 12-78 Normal (applies to non-numeric resul ts) [facility]) Alkaline Phosphatase 72 U/L 45-117 Normal (applies to non-num amrit results) [facility]) Albumin 4.4 GM/DL 3.2-5.2 Normal (applies to non-numeric resul ts) [facility]) Total Protein 7.5 GM/DL 6.4-8.2 Normal (applies to non-numeric re sults) [facility]) Bilirubin,Total 0.7 mg/dL 0.2-1.0 Normal (applies to non-numeric results) [facility]) Albumin/Globulin Ratio 1.4 Normal (applies to non-n umeric results) [facility] ([facility]) Procedure Social History No Information Vital Signs ID Date Data Source UNK Name Value Range Interpretation Code Description Data Source(s) Systolic blood pressure 122 mm[Hg] 122 mm[Hg] [facility] ([facility]) Diastolic blood pressure 74 mm[Hg] 74 mm[Hg] [facility] ([facility]) Body height 69.7 [in_i] 69.7 [in_i] [facility] ([facility]) 5'9.70" Body weight 180.50 [lb_av] 180.50 [lb_av] [facility] Body mass index (BMI) [Ratio] 26.1 kg/m2 26.1 k g/m2 [facility] ([facility]) Heart rate 73 /min 73 /min [facility] ([facility]) Respiratory rate 18 /min 18 /min [facility] ( [facility]) Body temperature 97.9 [degF] 97.9 [degF] [facility] ([facility]) Oxygen saturation in Arterial blood by Pulse oximetry 97 % 97 % [facility] ([facility]) [place] body weight 160 [lb_av] 160 [lb_av] [facility] ([facility]) Oxygen saturation in Arterial blood by Pulse oximetry 97 % 97 % [facility] ([facility]) [place] body weight 160 [lb_av] 160 [lb_av] [facility] ([facility]) Body temperature 98.2 [degF] 98.2 [degF] [facility] ([facility]) Body height 69.7 [in_i] 69.7 [in_i] [facility] ([facility]) 5'9.70" Heart rate 89 /min 89 /min [facility] ([facility]) Respiratory rate 20 /min 20 /min [facility] ( [facility]) Diastolic blood pressure 84 mm[Hg] 84 mm[Hg] [facility] ([facility]) Body height 69.7 [in_i] 69.7 [in_i] [facility] ([facility]) 5'9.70" Body weight 209.00 [lb_av] 209.00 [lb_av] [facility] ([facility]) Body mass index (BMI) [Ratio] 30.2 kg/m2 30.2 k g/m2 [facility] ([facility]) Heart rate 87 /min 87 /min [facility] ([facility]) Respiratory rate 16 /min 16 /min [facility] ( [facility]) Body temperature 97.9 [degF] 97.9 [degF] [facility] ([facility]) Oxygen saturation in Arterial blood by Pulse oximetry 96 % 96 % [facility] ([facility]) [place] body weight 160 [lb_av] 160 [lb_av] [facility] ([facility]) Systolic blood pressure 140 mm[Hg] 140 mm[Hg] [facility] ([facility]) Systolic blood pressure 128 mm[Hg] 128 mm[Hg] [facility] ([facility]) Diastolic blood pressure 74 mm[Hg] 74 mm[Hg] [facility] ([facility]) Body height 69.7 [in_i] 69.7 [in_i] [facility] ([facility]) 5'9.70" Body weight 210.12 [lb_av] 210.12 [lb_av] [facility] ([facility]) Oxygen saturation in Arterial blood by Pulse oximetry 97 % 97 % [facility] ([facility]) [place] body weight 160 [lb_av] 160 [lb_av] [facility] ([facility]) Body mass index (BMI) [Ratio] 30.4 kg/m2 30.4 k g/m2 [facility] ([facility]) Heart rate 69 /min 69 /min [facility] ([facility]) Respiratory rate 18 /min 18 /min [facility] Body temperature 98.4 [degF] 98.4 [degF] [facility] ([facility])
--- NOTE | 2021-02-10 21:58 | REPVR ---
PROCEDURE INFORMATION: Exam: CTA Chest With Contrast Exam date and time: 02/10/2021 8:25 PM Age: 30 years old Clinical indication: Abnormal findings; Abnormal diagnostic tests; Elevated d-dimer; Additional info: Elevated D-dimer, chest tightness, hemoptysis (recent covid) TECHNIQUE: Imaging protocol: Computed tomographic angiography of the chest with contrast. 3D rendering (Not supervised by radiologist): MIP and/or 3D reconstructed images were created by the technologist. Radiation optimization: All CT scans at this facility use at least one of these dose optimization techniques: automated exposure control; mA and/or kV adjustment per patient size (includes targeted exams where dose is matched to clinical indication); or iterative reconstruction. Contrast material: ISOVUE 370; Contrast volume: 75 ml; Contrast route: INTRAVENOUS (IV); COMPARISON: CR Chest, 2 view PA, Lat 02/10/2021 11:51 AM FINDINGS: Pulmonary arteries: No pulmonary embolism. Aorta: The thoracic aorta is intact and patent. There is no thoracic aortic aneurysm, pseudoaneurysm, penetrating atherosclerotic ulcer, intramural hematoma, or dissection. Trachea: Normal. Bronchial tree: Normal. Lungs: There is patchy airspace consolidation in the left upper lobe, lingula, both lower lobes, and to a lesser extent in the right middle lobe. Pleural spaces: No pneumothorax or pleural effusion. Heart: No cardiomegaly or pericardial effusion. The ratio of the diameter of the right ventricle to the diameter of the left ventricle measures less than 1, which is within normal limits and there is no CT evidence for a right ventricular strain. Mediastinal space: No mediastinal mass, fluid collection, or pneumomediastinum. Lymph nodes: Normal. No enlarged lymph nodes. Diaphragm: Intact. Spleen: Unremarkable. No splenomegaly is noted. Adrenal glands: Normal. No adrenal mass is noted. Bones/joints: There is no fracture or dislocation. No suspicious osteolytic or osteoblastic lesion. Soft tissues: There is mild bilateral gynecomastia. IMPRESSION: 1. No pulmonary embolism. 2. Patchy airspace consolidation in the left upper lobe, lingula, both lower lobes, and to a lesser extent in the right middle lobe. Imaging features can be seen with COVID-19 pneumonia, though are nonspecific and can occur with a variety of infectious and noninfectious processes. (Reference: Elbert) REFERENCES: Elbert Peoples, et al., [employer] Society of [place] Expert Consensus Statement on Reporting Chest CT Findings Related to COVID-19. Endorsed by the Society of [employer], the [employer] [employer], and [employer]NA. Published June 03, 2019. Electronically signed by: Froilan Lopez On 02/10/2021 21:57:28 PM
[2021-02-10 22:23] VITALS: BP 128/79
[2021-02-10] MEDS ORDERED: BENZ200C70 PO (22:24)
== END 2021-02-10 22:49 | disposition home or self-care (01) ==
LOC: M ED 14:06
DX: R79.89 Other specified abnormal findings of blood chemistry (principal); U07.1 COVID-19; R91.8 Other nonspecific abnormal finding of lung field
CPT/HCPCS: 71275; 99284; Q9967

== ENCOUNTER → 2021-02-10 | Outpatient (CLI) | payer BC ==
[~2021-02-10] MED LIST: BENZ200C70 PO
[2021-02-10 12:13] LABS: BASO % 0.9 % (0.0-1.0); EOS # 0.1 10^3/uL (0.0-0.5); EOS % 1.8 % (0.0-3.0); HEMATOCRIT 44.9 % (42.0-52.0); HEMOGLOBIN 15.3 g/dl (13.5-17.5); LYMPH % 43.9 % (24.0-44.0); MEAN CORPUSCULAR HEMOGLOBIN 30.8 pg (27.0-33.0); MEAN CORPUSCULAR HGB CONC 34.1 g/dl (32.0-36.5); MEAN CORPUSCULAR VOLUME 90.3 fl (80.0-96.0); MONO # 0.4 10^3/uL (0.0-0.8); NEUTROPHILS % 44.2 % (36.0-66.0); PLATELET COUNT, AUTOMATED 263 10^3/uL (150-450); RED BLOOD COUNT 4.97 10^6/uL (4.30-6.10); WHITE BLOOD COUNT 4.4 10^3/uL (4.0-10.0)
[2021-02-10 12:24] LABS: INR 0.97; PROTHROMBIN TIME 13.3 SECONDS (12.7-14.5)
[2021-02-10 12:25] LABS: PARTIAL THROMBOPLASTIN TIME 30.9 SECONDS (25.9-37.0)
[2021-02-10 12:27] LABS: D-DIMER QUANT 584.54 ng/ml (<500)
[2021-02-10 12:37] LABS: ALBUMIN 4.1 GM/DL (3.2-5.2); ALT/SGPT 63 U/L (12-78); BILIRUBIN,TOTAL 0.4 MG/DL (0.2-1.0); BLOOD UREA NITROGEN 10 MG/DL (7-18); C REACTIVE PROTEIN QUANTITATIV 0.68 MG/DL (0.00-0.30); CALCIUM LEVEL 9.1 MG/DL (8.5-10.1); CARBON DIOXIDE LEVEL 29 MEQ/L (21-32); CHLORIDE LEVEL 109 MEQ/L (98-107); CREATININE FOR GFR 0.84 MG/DL (0.70-1.30); GLOMERULAR FILTRATION RATE > 60.0 (>60); GLUCOSE, FASTING 88 MG/DL (70-100); POTASSIUM SERUM 4.2 MEQ/L (3.5-5.1); SODIUM LEVEL 142 MEQ/L (136-145)
--- NOTE | 2021-02-11 16:44 | REP ---
INDICATION: HEMOPTYSIS COMPARISON: None. TECHNIQUE: PA and lateral. FINDINGS: Mediastinum and cardiac silhouette are normal. Mid lung opacities (right greater than left) suggest multifocal pneumonia. No effusion. No pneumothorax. IMPRESSION: Bilateral mid lung opacities suggest multifocal pneumonia. Differential diagnosis includes COVID-19 pulmonary disease and correlation is required. <Electronically signed by Lino Birmingham > 02/11/21 1640
== END ==
LOC: M RAD 11:38
PROVIDERS: ATTEND Physician Assistant
DX: R04.2 Hemoptysis (principal); U09.9 Post COVID-19 condition, unspecified; R91.8 Other nonspecific abnormal finding of lung field

== ENCOUNTER → 2024-05-28 | Outpatient (REF) | payer BC ==
[2024-05-28 14:17] LABS: ALBUMIN 4.2 G/DL (3.2-5.2); ALKALINE PHOSPHATASE 68 U/L (40-129); ALT/SGPT 45 U/L (7.0-40); AST/SGOT 24 U/L (<34); BILIRUBIN,TOTAL 0.6 MG/DL (0.3-1.2); BLOOD UREA NITROGEN 20 MG/DL (9-23); CALCIUM LEVEL 9.5 MG/DL (8.5-10.1); CARBON DIOXIDE LEVEL 27 MMOL/L (20-31); CHLORIDE LEVEL 107 MMOL/L (98-107); CHOLESTEROL LEVEL 283 MG/DL (<200); CHOLESTEROL RISK RATIO 5.68 (<5); CREATININE FOR GFR 0.91 MG/DL (0.70-1.30); GLOMERULAR FILTRATION RATE > 60.0 (>60); GLUCOSE, FASTING 95 MG/DL (60-100); HDL CHOLESTEROL 49.8 MG/DL (>40); LDL CHOLESTEROL 189.4 MG/DL (<100); NON-HDL-C 233.2 MG/DL; POTASSIUM SERUM 4.4 MMOL/L (3.5-5.1); SODIUM LEVEL 143 MMOL/L (136-145); TOTAL PROTEIN 7.1 G/DL (5.7-8.2); TRIGLYCERIDES LEVEL 219 MG/DL (<150)
== END ==
LOC: M LABDRWAD 13:15
PROVIDERS: ATTEND Physician Assistant
DX: E78.2 Mixed hyperlipidemia (principal)